=== PATIENT | female | born 1985 | race Caucasian/White ===

== ENCOUNTER 2017-05-13 17:28 | Inpatient (IN) ==
--- NOTE | 2017-05-13 17:53 | Emergency Department Note ---
Disposition Clinical Impression: Altered mental status Qualifiers: Altered mental status type: unspecified Qualified Code(s): R41.82 - Altered mental status, unspecified Overdose Qualifiers: Encounter type: initial encounter Injury intent: undetermined intent Qualified Code(s): T50.904A - Poisoning by unspecified drugs, medicaments and biological substances, undetermined, initial encounter Disposition: Admitted As Inpatient Condition: Undetermined Referrals: Ant Vasques, PAC [Primary Care Provider] - Forms: ED Satisfaction Letter Time of Disposition: 20:15 General Adult HPI - General Chief complaint: ED Altered Mental Status Stated complaint: ams Time Seen by Provider: 05/13/17 17:31 Source: patient, EMS Mode of arrival: EMS Limitations: no limitations Nursing Notes Reviewed: Yes Vital Signs Reviewed: Yes - History of Present Illness HPI Narrative: 31-year-old female arrives [facility] emergency department with concern for drug overdose. The patient obtained a prescription for Xanax, lithium today. She has roughly 40 tablets of Xanax 1 mg missing from her bottle. In addition the patient has 8 capsules of 300 mg lithium missing from her bottle. The patient adamantly refuses that she took all of the Xanax. She states she only took 10 Xanax at roughly 1:30 this afternoon and woke up to her father screaming. She adamantly states that she only took 2 lithium. The patient denies taking any other medication. There was a report from a family member who states that the patient may have taken some sort of blood pressure medicine. They were EMS report was stated that the patient was altered. After speaking to Jayden Nielsen as well as EMS there was no noted alteration in mentation during the entire transport or arrival to the emergency department. The patient's blood pressure was in the 130s systolic both with EMS and here in the emergency department. She does not appear altered in mentation. She is answering all questions appropriately. The patient's story conflicts with report from EMS with amount of tablets taken. Patient states this is associated with argument at home. I am unsure about number of tablets patient took him very concerned about the patient. Onset (ago): unknown Pain Scale: 0 Improves with: nothing Worsens with: nothing Associated symptoms: Reports: denies other symptoms Treatments Prior to Arrival: none - Related Data Home Medications Medication Instructions Recorded Confirmed LORazepam [Ativan] 1 mg PO PRN PRN 07/04/16 08/13/16 Gabapentin [Neurontin] 400 mg PO QID 08/13/16 08/13/16 Previous Rx's Medication Instructions Recorded Acetaminophen/Butalbital/Caffe 1 each PO Q6HR PRN #10 tablet 08/13/16 [Fioricet] HydrOXYzine 50 mg PO TID 7 Days tablet 04/12/17 Ketoconazole 2% CRM [Nizoral Cream] 1 appl TP DAILY #1 tube 04/12/17 metroNIDAZOLE [Metronidazole] 500 mg PO BID 7 Days tablet 04/12/17 Allergies Allergy/AdvReac Type Severity Reaction Status Date / Time No Known Allergies Allergy Verified 07/04/16 17:14 All systems ED: reviewed and negative except as stated. Constitutional: Denies: fever, chills, weakness ENT ED: Denies: congestion Cardiovascular: Denies: chest pain Respiratory: Denies: dyspnea Gastrointestinal: Denies: abdominal pain Genitourinary: Denies: dysuria Musculoskeletal: Denies: back pain Integumentary: Denies: rash Neurological: Denies: headache, confusion Psychiatric: Reports: depression. Denies: suicidal thoughts, homicidal thoughts Past Medical History - Past Medical History Attestation: Yes The following information was validated with the patient. Source: patient Medical history: Reports: hepatitis, migraine, seizures, other Surgical history: Reports: , other Psychiatric history: Reports: anxiety, depression, previous psychiatric hospitalization [employer] history: Reports: bilateral tubal ligation - Social History Smoking Status: Current every day smoker Smokeless Tobacco Status: No Alcohol use: Reports: none Drug use: Reports: opiates, marijuana Physical Exam - General Limitations: no limitations General appearance: alert, in no apparent distress - Head Head exam: atraumatic, normocephalic, normal inspection - Eye Eye exam: Present: normal appearance, PERRL, EOMI - ENT ENT exam: normal exam, normal oropharynx, mucous membranes moist - Neck Neck exam: Present: normal inspection, full ROM, trachea midline - Chest Chest inspection: Present: normal inspection, symmetric chest wall rise - Cardiovascular Cardiovascular exam: Present: regular rate - Abdominal Exam Abdominal exam: Present: Non-Tender. Absent: tenderness, distention, guarding, rebound, rigidity - Extremities Exam Extremities exam: Present: normal inspection, full ROM. Absent: tenderness, pedal edema - Neurological Exam Neurological exam: Present: alert, oriented X3, CN II-XII intact - Expanded Neurological Exam Patient oriented to: Present: person, place, time Speech: Present: fluid speech Coma Scale Eye Opening: Spontaneous Coma Scale Motor Response: Obeys Commands Coma Scale Verbal Response: Oriented Coma Scale Total: 15 Course - Reevaluation(s) Reevaluation #1: I spoke to [place] at the [facility] who had no further recommendations at this time with the exception of every 4-6 hour lithium levels. As well as further monitoring. If the patient becomes symptomatic with her blood pressure, they recommended consultation back with the pst supervisor. Time: 19:03 Vital Signs Temperature 97.9 F 05/13/17 17:31 Pulse Rate 72 05/13/17 17:31 Respiratory Rate 16 05/13/17 17:31 Blood Pressure 131/89 05/13/17 17:31 O2 Sat by Pulse Oximetry 100 05/13/17 17:31 Temperature 97.9 F 05/13/17 17:31 Pulse Rate 83 05/13/17 19:25 Respiratory Rate 16 05/13/17 19:25 Blood Pressure 107/82 05/13/17 19:25 O2 Sat by Pulse Oximetry 100 05/13/17 19:25 Oxygen Delivery Oxygen Delivery Room Air Medical Decision Making - MDM Narrative Medical decision making narrative: The patient's blood pressure has remained stable here in the emergency department without any signs of hypotension. The patient has been intermittently bradycardic down into the upper 40s. She was administered glucagon with no real change. The patient is somnolent but easily arousable. Given the patient's concern for admitting taking the Xanax, 10 mg, I will likely contribute to her somnolence to this. With further concern for possible other medication overdose given the different stories, we will admit the patient to the hospital for further observation. After speaking to Dalton at the [facility] Control [facility], they recommended every 4-6 hour lithium levels. EKG demonstrates no QT or QRS prolongation. The patient again remains very stable here in the emergency department. At this time it is roughly 6 hours since initial ingestion according to history from family. We will admit the patient to the hospitalist at this time, accepted by . - Lab Data Lab results reviewed: Yes I reviewed the patient's lab results. Result diagrams: 05/13/17 19:12 05/13/17 19:12 Lab Results 05/13/17 05/13/17 05/13/17 Range/Units 19:12 19:12 19:12 WBC 10.5 (4.3-11.1) K/mcL RBC 4.82 (3.82-4.97) M/mcL Hgb 13.2 (11.5-15.4) g/dL Hct 40.0 (35.3-44.9) % MCV 83.0 (83.0-100.0) fL MCH 27.4 L (28.0-33.3) pg MCHC 33.0 (31.6-35.5) g/dL RDW 13.6 (11.5-14.5) % Plt Count 244 (140-400) K/mcL MPV 10.4 (9.4-12.4) fL Immature Gran % 0.3 (0-4) % Seg Neutrophils % 64.3 % Lymphocytes % 26.4 % Monocytes % 6.3 % Eosinophils % 1.7 % Basophils % 1.0 % Neutrophils # 6.8 (1.6-8.9) K/mcL Lymphocytes # 2.8 (0.6-4.6) K/mcL Monocytes # 0.7 (0.0-1.3) K/mcL Eosinophils # 0.2 (0.0-0.6) K/mcL Basophils # 0.1 (0.0-0.2) K/mcL Sodium 139 (136-145) mEq/L Potassium 3.7 (3.5-4.5) mEq/L Chloride 106 (98-109) mEq/L Carbon Dioxide 20 (19-29) mEq/L BUN 8 (7-20) mg/dL Creatinine 0.95 (0.57-1.11) mg/dL Est GFR ( Amer) > 60 (> 60) Est GFR (Non-Af Amer) > 60 (> 60) BUN/Creatinine Ratio 8 (6-26) Glucose 94 (70-99) mg/dL Calculated Osmolality 286 (280-300) Calcium 9.3 (8.6-10.8) mg/dL Salicylates < 5.0 L (15-30) mg/dL Acetaminophen < 1.0 L (10-30) mcg/mL [place] 0.5 L (0.6-1.2) mEq/L Ethyl Alcohol < 10 (0-10) mg/dL - EKG Data EKG #1 EKG attestation: Yes I reviewed and interpreted this EKG. EKG results narrative: Heart rate [address] interval 162 ms. QTC 397 ms. Normal sinus rhythm. No ST elevation or ST depression noted. EKG similar in appearance to EKG from . No acute changes noted.
[2017-05-13] MEDS ORDERED: Naloxone 0.4 MG/ML INJ IVP ONE (18:16)
[2017-05-13] MEDS ORDERED: 0.9 % Sodium Chloride 1,000 ML IVC ONE (18:55)
[2017-05-13 19:21] LABS: Basophils # 0.1 K/mcL (0.0-0.2); Eosinophils # 0.2 K/mcL (0.0-0.6); Eosinophils % 1.7 %; Hemoglobin 13.2 g/dL (11.5-15.4); Immature Granulocytes % 0.3 % (0-4); Lymphocytes # 2.8 K/mcL (0.6-4.6); Lymphocytes % 26.4 %; Mean Corpuscular Hemoglobin 27.4 pg (28.0-33.3); Mean Platelet Volume 10.4 fL (9.4-12.4); Monocytes # 0.7 K/mcL (0.0-1.3); Monocytes % 6.3 %; Neutrophils # 6.8 K/mcL (1.6-8.9); Platelet Count 244 K/mcL (140-400); Red Blood Count 4.82 M/mcL (3.82-4.97); Red Cell Distribution Width 13.6 % (11.5-14.5); Segmented Neutrophils % 64.3 %
[2017-05-13 19:34] LABS: Acetaminophen < 1.0 mcg/mL (10-30); BUN/Creatinine Ratio 8 (6-26); Blood Urea Nitrogen 8 mg/dL (7-20); Calcium 9.3 mg/dL (8.6-10.8); Carbon Dioxide 20 mEq/L (19-29); Chloride 106 mEq/L (98-109); Ethanol < 10 mg/dL (0-10); Glucose 94 mg/dL (70-99); Osmolality,Calculated 286 (280-300); Sodium 139 mEq/L (136-145); eGFR For African Americans > 60 (> 60); eGFR For Non-African Americans > 60 (> 60)
[2017-05-13 19:35] LABS: Potassium 3.7 mEq/L (3.5-4.5); Salicylate < 5.0 mg/dL (15-30)
[2017-05-13 20:12] LABS: Bilirubin,Urine Negative (Negative); Blood,Urine Negative (Negative); Clarity,Urine Cloudy (Clear); Color,Urine Yellow (Yellow); Glucose,Urine (UA) Normal (Normal); Ketones,Urine Negative (Negative); Leukocyte Esterase,Urine Negative (Negative); Nitrite,Urine Negative (Negative); PH,Urine 6.5 pH Units (5.0-8.0); Protein,Urine Negative (Neg-Trace); Specific Gravity,Urine 1.009 (1.010-1.025); Urobilinogen,Urine Normal (Normal)
[2017-05-13 20:14] LABS: Bacteria,Urine Few per hpf (None-Few); Hyaline Casts,Urine None Seen per lpf (None-Few); RBC,Urine 0-3 per hpf (0-3); Squamous Epithelial Cell,Urine Many per lpf (None-Few)
[2017-05-13 20:19] LABS: Amphetamine Screen,Urine Positive ng/mL (Cutoff=1000); Barbiturate Screen,Urine Negative ng/mL (Cutoff=200); Benzodiazepines Screen,Urine Positive ng/mL (Cutoff=200); Cannabinoid Screen,Urine Positive ng/mL (Cutoff = 50); Cocaine Screen,Urine Negative ng/mL (Cutoff= 300); Opiate Screen,Urine Negative ng/mL (Cutoff=300); Phencyclidine Screen,Urine Negative ng/mL (Cutoff=25)
--- NOTE | 2017-05-13 20:55 | Emergency Department Note ---
START Narrative - START START: I examined this patient and my medical decision-making was reviewed with the Resident Physician. I agree with the documented findings, disposition and treatment plan as described except to the extent set forth below. Altered mental status, possible overdose with Xanax. We would proceed with admission for further management. Patient stable at time of admission. Likely symptoms resulting from overdose of benzodiazepine. No respiratory depression at time of admission. Other drug levels have been checked and negative. Poison control has been consulted.
[2017-05-13] MEDS ORDERED: Naloxone 0.4 MG/ML INJ IVP PRN (21:26)
[2017-05-13] MEDS ORDERED: Acetaminophen 325 MG TABLET PO PRN (21:26)
[2017-05-13] MEDS ORDERED: Ondansetron 4 MG/2 ML VIAL IVP PRN (21:26)
--- NOTE | 2017-05-13 21:30 | Internal Med History&Physical ---
Date of Encounter: 05/13/17 Time of Encounter: 21:10 Assessment and Plan (1) Overdose Current visit: Yes Status: Acute Acute drug overdose with [place] and benzodiazepine - likely intentional overdose/ingestion NPO, IV fluids, supportive care, monitor serial lithium levels [place] level - 0.5 UDS - positive for THC, benzodiazepines, amphetamines Chest x-ray - no acute process Psychiatry consult Cardiac telemetry, labs in a.m., monitor closely Qualifiers: Encounter type: initial encounter Injury intent: undetermined intent Qualified Code(s): T50.904A - Poisoning by unspecified drugs, medicaments and biological substances, undetermined, initial encounter (2) Mood disorder Current visit: Yes Status: Chronic Mood disorder, bipolar disorder Patient is on [place] at home (3) Anxiety Current visit: Yes Status: Chronic Chronic anxiety and depression Patient is on Xanax at home (4) DVT prophylaxis Current visit: Yes Status: Acute Heparin subcutaneous Internal Medicine - H&P: HPI Chief complaint: Altered mental status Admitted From: Emergency Dept Plans for Post Hospital Care: Home History of present illness: Ms. Gallegos is a 31 year old female with past medical history of migraine headaches, seizure disorder, hepatitis, anxiety, depression and bipolar disorder. Patient presents to the ED with altered mental status. Examined in the room. Patient is somnolent. Unable to obtain any history from her. No family members at bedside. All history is obtained from ED records. When patient initially presented to the ED, there is concern for intentional drug overdose. Patient apparently recently filled a prescription for Xanax and lithium. About 40 pills of Xanax and about 8 pills of [place] were missing from her bottles. Patient's except weakness at around 1:30 this afternoon. Patient was initially awake and alert the ED, and states that she did not take all her pills. Patient apparently denied taking any other medications. There is also concern the patient may have intentionally ingested some blood pressure medications. At this time it is unclear as to how many pills and recommended medications patient has intentionally ingested. This may have occurred because of a origin and at home. No other associated symptoms. No other complaints at this time. Initial workup in the ED is negative. Urine drug screen is positive for THC, benzodiazepines and amphetamines. ED physician has contacted poison control, and supportive care was recommended along with serial lithium levels. As mentioned patient is somnolent and she is unable to provide any history. No family members at bedside. CODE STATUS full code. Past Med Surg Social Fam HX - Past Medical History Medical history: hepatitis, migraine, seizures, other Psychiatric history: anxiety, depression, previous psychiatric hospitalization - Past Surgical History Surgical History: , other - Social History Smoking Status: Current every day smoker Smokeless Tobacco Status: No Alcohol use: none Drug use: opiates, marijuana Internal Medicine - H&P: Meds ALPRAZolam [Xanax 0.5 MG Tablet] 0.5 mg PO TID 05/13/17 [History] Buprenorphine HCl/Naloxone HCl [Suboxone 8 mg-2 mg Sl Film] 2 each SL DAILY 11/22 [History] [place] Carbonate 300 mg PO BID 05/13/17 [History] 3 Allergy/AdvReac Type Severity Reaction Status Date / Time No Known Allergies Allergy Verified 05/13/17 21:07 ROS unobtainable: due to mental status All Systems PM: A 10-system review of systems was performed and is negative for pertinent findings except as documented above in the HPI. - Constitutional Vitals: Temp Pulse Resp BP Pulse Ox 97.9 F 85 18 103/93 96 05/13/17 17:31 05/13/17 20:25 05/13/17 21:01 05/13/17 21:01 05/13/17 20:25 General appearance: Present: no acute distress Exam: Patient is somnolent. Unable to provide any history. Responds to painful stimuli. Able to move all extremities - Head Head exam: Present: atraumatic - Eye Eye exam: Present: sclera anicteric - ENT ENT exam: Present: mucous membranes dry - Respiratory Respiratory exam: Present: CTAB. Absent: accessory muscle use, chest wall tenderness, rales, respiratory distress, rhonchi, wheezes, tachypnea - Cardiovascular Cardiovascular exam: Present: RRR, +S1, +S2 - GI/Abdominal GI/Abdominal exam: Present: soft. Absent: distended, firm, guarding, tenderness - Extremities Exam Extremities exam: Present: radial pulses palpable and symmetrical. Absent: calf tenderness, cyanotic, pedal edema - Neurological Exam Additional comments: Patient is somnolent. Response to painful stimuli. Unable to provide any history. Able to move all extremities. Internal Med - H&P Results - Labs CBC & Chem 7: 05/13/17 19:12 05/14/17 03:13
[2017-05-14] MEDS ORDERED: 0.9 % Sodium Chloride 1,000 ML IVC SCH (00:15)
[2017-05-14 03:32] LABS: BUN/Creatinine Ratio 10 (6-26); Blood Urea Nitrogen 8 mg/dL (7-20); Calcium 8.4 mg/dL (8.6-10.8); Carbon Dioxide 19 mEq/L (19-29); Chloride 111 mEq/L (98-109); Glucose 76 mg/dL (70-99); Osmolality,Calculated 289 (280-300); Potassium 3.2 mEq/L (3.5-4.5); Sodium 141 mEq/L (136-145); eGFR For African Americans > 60 (> 60); eGFR For Non-African Americans > 60 (> 60)
[2017-05-14] MEDS ORDERED: *HR* Heparin 5,000 UNIT/ML VIAL SQ SCH (06:00)
[2017-05-14 11:32] VITALS: BP 110/73
--- NOTE | 2017-05-14 12:03 | Consult Note ---
Date of Encounter: 05/14/17 Time of Encounter: 11:30 Assessment & Recommendation (1) Overdose Current visit: Yes Status: Acute Qualifiers: Encounter type: initial encounter Injury intent: undetermined intent Qualified Code(s): T50.904A - Poisoning by unspecified drugs, medicaments and biological substances, undetermined, initial encounter (2) Bipolar 1 disorder, depressed, severe Current visit: Yes Status: Acute Assessment & Recommendation: patient has mixed episode at present, she needs in patient stabilization. (3) Opiate dependence Current visit: Yes Status: Chronic Assessment & Recommendation: was on suboxone for 7 months , none for 2 months as missed her appointment. Qualifiers: Substance use status: uncomplicated Qualified Code(s): F11.20 - Opioid dependence, uncomplicated (4) Cannabis abuse Current visit: No Status: Chronic History of Present Illness Requesting Physician: Tanna Guo CNP Reason for consult: intentional overdose. History of present illness: Ms. Gallegos is a 31 year old female was consulted for intentional overdose. chart reviewed , she was presented to ED with altered mental status. she gives h/o depression , anxiety , bipolar ,substance use ,hepatitis, seizure disorder and migraines. Ms. Sommer was cooperative , alert able to give history but tearful thr the session. As per her was having lot of stress and having really bad time and that is why she she was just put on medications by her PCP Her mother was just dx with Parkinson and she is taking care of her , lives with mother and step father , does not get along with her step father and states i took pills to sleep and not to hurt self, she has one previous attempt , also was in patient at [facility] . she is very depress, tearful, anxious, racing and circumstantial thought process , no thoughts to hurt self at present but is hopeless and depress. she denied any drug use except marijuana but her tox. is positive for meth., marijuana and benzo. she is high risk , needs in patient psych. stabilization and medication management Rec. Thank you for consult . Once medically cleared can transfer to psych unit. She is c/o left ankle pain and not moving it , needs to be evaluated before coming to [facility]. CC: Tanna Guo CNP Past Med Surg Social Fam HX - Past Medical History Medical history: hepatitis, migraine, seizures, other - Past Psychiatric History Psychiatric history: Reports: anxiety, bipolar, depression, prior suicide attempt, previous psychiatric hospitalization Family psychiatric history: Yes Family History of Suicide: Attempted - Past Surgical History Surgical History: , other - Social History Smoking Status: Current every day smoker Smokeless Tobacco Status: No Alcohol use: none Drug use: opiates, marijuana Medications & Allergies ALPRAZolam [Xanax 0.5 MG Tablet] 0.5 mg PO TID 05/13/17 [History] Buprenorphine HCl/Naloxone HCl [Suboxone 8 mg-2 mg Sl Film] 2 each SL DAILY 11/22 [History] [place] Carbonate 300 mg PO BID 05/13/17 [History] 3 Allergy/AdvReac Type Severity Reaction Status Date / Time No Known Allergies Allergy Verified 05/13/17 21:07 Review of Systems Psychiatric: Reports: depression, anxiety, abnormal sleep pattern, suicidal ideation, hopelessness, mood swings, panic attacks Mental Status Exam Patient orientation: Yes Person, Yes Time, Yes Place Level of alertness: Alert Patient appearance: Disheveled Behavior: cooperative, anxious, tearful Psychomotor activity: Increased Eye contact: Maintains Eye Contact Mood description: Depressed, Anxious Affect description: tearful, anxious Speech pattern: Excessive Speech volume: Normal Thought process: Circumstantial Thought content: Yes Guilt Attention span: Unable to Sustain Attention Memory description: Grossly Intact Patient reliability: Reliable Historian Intelligence estimate: Average Judgment: Poor Insight: Partial Results - Vital Signs Vital signs: Temp Pulse Resp BP Pulse Ox 97.5 F L 62 16 110/73 99 05/14/17 11:29 05/14/17 11:29 05/14/17 11:29 05/14/17 11:29 05/14/17 11:29 - Drug Levels and Toxicology Drug Levels and Toxicology: Drug Levels and Toxicity 05/14/17 04:57 [place] 0.3 L - Labs Labs: Laboratory Last Values WBC 10.5 K/mcL (4.3-11.1) 05/13/17 19:12 RBC 4.82 M/mcL (3.82-4.97) 05/13/17 19:12 Hgb 13.2 g/dL (11.5-15.4) 05/13/17 19:12 Hct 40.0 % (35.3-44.9) 05/13/17 19:12 MCV 83.0 fL (83.0-100.0) 05/13/17 19:12 MCH 27.4 pg (28.0-33.3) L 05/13/17 19:12 MCHC 33.0 g/dL (31.6-35.5) 05/13/17 19:12 RDW 13.6 % (11.5-14.5) 05/13/17 19:12 Plt Count 244 K/mcL (140-400) 05/13/17 19:12 MPV 10.4 fL (9.4-12.4) 05/13/17 19:12 Immature Gran % 0.3 % (0-4) 05/13/17 19:12 Seg Neutrophils % 64.3 % 05/13/17 19:12 Lymphocytes % 26.4 % 05/13/17 19:12 Monocytes % 6.3 % 05/13/17 19:12 Eosinophils % 1.7 % 05/13/17 19:12 Basophils % 1.0 % 05/13/17 19:12 Neutrophils # 6.8 K/mcL (1.6-8.9) 05/13/17 19:12 Lymphocytes # 2.8 K/mcL (0.6-4.6) 05/13/17 19:12 Monocytes # 0.7 K/mcL (0.0-1.3) 05/13/17 19:12 Eosinophils # 0.2 K/mcL (0.0-0.6) 05/13/17 19:12 Basophils # 0.1 K/mcL (0.0-0.2) 05/13/17 19:12 Sodium 141 mEq/L (136-145) 05/14/17 03:13 Potassium 3.2 mEq/L (3.5-4.5) L 05/14/17 03:13 Chloride 111 mEq/L (98-109) H 05/14/17 03:13 Carbon Dioxide 19 mEq/L (19-29) 05/14/17 03:13 BUN 8 mg/dL (7-20) 05/14/17 03:13 Creatinine 0.82 mg/dL (0.57-1.11) 05/14/17 03:13 Est GFR ( Amer) > 60 (> 60) 05/14/17 03:13 Est GFR (Non-Af Amer) > 60 (> 60) 05/14/17 03:13 BUN/Creatinine Ratio 10 (6-26) 05/14/17 03:13 Glucose 76 mg/dL (70-99) 05/14/17 03:13 POC Glucose 81 (58-89) 05/14/17 00:10 Calculated Osmolality 289 (280-300) 05/14/17 03:13 Calcium 8.4 mg/dL (8.6-10.8) L 05/14/17 03:13 Urine Color Yellow (Yellow) 05/13/17 20:03 Urine Clarity Cloudy (Clear) A 05/13/17 20:03 Urine pH 6.5 pH Units (5.0-8.0) 05/13/17 20:03 Ur Specific [place] 1.009 (1.010-1.025) L 05/13/17 20:03 Urine Protein Negative mg/dL (Neg-Trace) 05/13/17 20:03 Urine Glucose (UA) Normal mg/dL (Normal) 05/13/17 20:03 Urine Ketones Negative mg/dL (Negative) 05/13/17 20:03 Urine Blood Negative (Negative) 05/13/17 20:03 Urine Nitrite Negative (Negative) 05/13/17 20:03 Urine Bilirubin Negative (Negative) 05/13/17 20:03 Urine Urobilinogen Normal mg/dL (Normal) 05/13/17 20:03 Ur Leukocyte Esterase Negative (Negative) 05/13/17 20:03 Urine Microscopic RBC 0-3 per hpf (0-3) 05/13/17 20:03 Urine Microscopic WBC 5-15 per hpf (0-3) H 05/13/17 20:03 Ur Squamous Epith Cells Many per lpf (None-Few) H 05/13/17 20:03 Urine Bacteria Few per hpf (None-Few) 05/13/17 20:03 Hyaline Casts None Seen per lpf (None-Few) 05/13/17 20:03 Ur Culture Indicated? NO (NO) 05/13/17 20:03 Salicylates < 5.0 mg/dL (15-30) L 05/13/17 19:12 Urine Opiates Screen Negative ng/mL (Hzkmqc=999) 05/13/17 20:03 Acetaminophen < 1.0 mcg/mL (10-30) L 05/13/17 19:12 Ur Barbiturates Screen Negative ng/mL (Kbctum=787) 05/13/17 20:03 Ur Phencyclidine Scrn Negative ng/mL (Cutoff=25) 05/13/17 20:03 Ur Amphetamines Screen Positive ng/mL (Juziwo=2008) H 05/13/17 20:03 U Benzodiazepines Scrn Positive ng/mL (Euqahx=581) H 05/13/17 20:03 [place] 0.3 mEq/L (0.6-1.2) L 05/14/17 04:57 Urine Cocaine Screen Negative ng/mL (Cutoff= 300) 05/13/17 20:03 U Marijuana (THC) Screen Positive ng/mL (Cutoff = 50) H 05/13/17 20:03 Ethyl Alcohol < 10 mg/dL (0-10) 05/13/17 19:12 Consult Discharge Plan - Plan Referrals: Ant Vasques, PAC [Primary Care Provider] -
--- NOTE | 2017-05-14 14:18 | Discharge Summary ---
Date of Encounter: 05/14/17 Time of Encounter: 14:13 - Discharge Diagnosis (1) Overdose Priority: Primary Status: Suspected Qualifiers: Encounter type: initial encounter Injury intent: undetermined intent Qualified Code(s): T50.904A - Poisoning by unspecified drugs, medicaments and biological substances, undetermined, initial encounter (2) Ankle sprain Priority: Secondary Status: Acute Qualifiers: Encounter type: initial encounter Involved ligament of ankle: unspecified ligament Laterality: unspecified laterality Qualified Code(s): S93.409A - Sprain of unspecified ligament of unspecified ankle, initial encounter (3) Anxiety Priority: Secondary Status: Chronic (4) Mood disorder Priority: Secondary Status: Chronic (5) DVT prophylaxis Priority: Secondary Status: Acute - Discharge Medications Home Medications: Acetaminophen [Tylenol] 650 mg PO Q6HR PRN tablet 05/14/17 [Rx] Allergies/Adverse Reactions: 3 Allergy/AdvReac Type Severity Reaction Status Date / Time No Known Allergies Allergy Verified 05/13/17 21:07 Date of admission: 05/13/17 21:26 Primary care physician: Ant Vasques Consults: 05/13/17 22:02 Consult to Nutrition [CONS] Routine Comment: Consulting Provider: NUTRITION Reason for Dietary Consult: MST Score 05/14/17 04:20 Consult to Psychiatry [CONS] Routine Consulting Provider: Psychiatry Rossana Reason for Consult: intentional overdose Call Completed: No 05/14/17 10:15 Consult to Interior Design Instructor [CONS] Routine Reason for SW Consult: living condition Discharging clinician: Christopher Jessica - Patient Status Disposition: Transfer Psychiatric Hosp Condition: Undetermined Functional capacity at discharge: independent ambulation (With some antalgic gait) - Discharge Instructions Follow Up With: Ant Vasques, PAC [Primary Care Provider] - - Diet and Activity Activity: increase activity as tolerated Diet: advance to your usual diet Hospital course: Ms. Gallegos is a 31 year old female with past medical history of migraine headaches, seizure disorder, hepatitis, anxiety, depression and bipolar disorder. Patient presents to the ED with altered mental status. Examined in the room. Patient is somnolent. Unable to obtain any history from her. No family members at bedside. All history is obtained from ED records. When patient initially presented to the ED, there is concern for intentional drug overdose. Patient apparently recently filled a prescription for Xanax and lithium. About 40 pills of Xanax and about 8 pills of [employer] were missing from her bottles. Patient's except weakness at around 1:30 this afternoon. Patient was initially awake and alert the ED, and states that she did not take all her pills. Patient apparently denied taking any other medications. There is also concern the patient may have intentionally ingested some blood pressure medications. At this time it is unclear as to how many pills and recommended medications patient has intentionally ingested. This may have occurred because of a origin and at home. No other associated symptoms. Urine drug screen is positive for THC, benzodiazepines and amphetamines. ED physician has contacted poison control, and supportive care was recommended along with serial lithium levels. As mentioned patient is somnolent and she is unable to provide any history. [employer] level - 0.5 and not in toxic range. UDS - positive for THC, benzodiazepines, amphetamines. She did complain of ankle pain after tripping. Physical exam showed ankle swelling otherwise negative and able to put weight on it. She had CHRISTIANO wrap placed and ice. She was medically stable. Psychiatry was consulted and deemed once medically cleared she should be transferred to Psychiatry unit. - Time Spent with Patient Total time spent providing and/or coordinating discharge services: - Constitutional Vitals: Temp Pulse Resp BP Pulse Ox 97.5 F L 62 16 110/73 99 05/14/17 11:29 05/14/17 11:29 05/14/17 11:29 05/14/17 11:29 05/14/17 11:29 General appearance: Present: A&O X 3 - Respiratory Respiratory exam: Present: CTAB. Absent: accessory muscle use, rales, rhonchi, wheezes - Cardiovascular Cardiovascular exam: Present: RRR, +S1, +S2. Absent: diastolic murmur, gallop, rubs, systolic murmur - Expanded Lower Extremities Exam Ankle exam: Present: full ROM (Left ankle slightly edematous with no bruising or contusions. Sensation is normal, pulses are normal. Able to place weight on it. No bony tenderness but there is diffuse tissue tenderness. Full ROM.) - Neurological Exam Neurological exam: Present: alert - Psychiatric Psychiatric exam: Present: agitated, anxious, depressed. Absent: normal affect , normal mood - Expanded Psychiatric Exam Focused psych exam: Present: restlessness
--- NOTE | 2017-05-14 18:51 | Electrocardiograph Report ---
[place] [id number] Test Date: 2017-05-13 Pat Name: Ros Gallegos Department: [id number] Room: 3B Gender: F Assistant Toddler Teacher: AM : 1985 Requested By: Cliff Richmond Order Number: [id number] Reading MD: Prince Johnson DO Measurements Intervals [place] Rate: 60 P: 68 WV: 162 QRS: 52 QRSD: 86 T: 27 QT: 397 QTc: 397 Interpretive Statements SINUS RHYTHM WITH SINUS ARRHYTHMIA POSSIBLE LEFT ATRIAL ENLARGEMENT Electronically Signed On 05-14-2017 18:49:47 EST by Prince Johnson DO
== END 2017-05-14 16:23 | DRG 812 ==
LOC: EMEROO 17:28 → 3BNU 17:28
PROVIDERS: ADMIT Internal Medicine; ATTEND Registered Nurse